=== PATIENT | male | born 1975 | race Caucasian/White ===

== ENCOUNTER 2024-01-15 08:27 | Emergency (ER) | payer BC, SELFPAY ==
[2024-01-15 08:43] VITALS: BP 158/107
--- NOTE | 2024-01-15 08:58 | ED.GENMED ---
History of Present Illness
General
Chief Complaint: Abdominal Pain
Time Seen by Provider: 01/15/24 08:58
History of Present Illness
History of Present Illness:
HPI: Patient presents with worsening right lower quadrant pain for the past week. He was seen by his cancer specialist at [facility] who referred him to PMD who referred him to ER at [facility] where he reports having a CT with oral and IV contrast that
showed 'inflammation of my intestines'. He was placed on Cipro and Flagyl. The symptoms have been worsening. They worsen with certain position changes. He called his PMD who referred him to the emergency department.
EXAM:
GENERAL: Well appearing in no distress
HEENT: Moist oral mucosa
CARDIOVASCULAR: No murmurs, normal heart rate, regular rhythm, No chest wall tenderness
PULMONARY: No respiratory distress, breath sounds are clear and equal
ABDOMEN: Soft with no peritoneal signs, very mild right lower quadrant tenderness
NEUROLOGIC: Excellent strength all extremities, no coordination deficits
PSYCHIATRIC: Appropriate mental status, normal insight and judgement
EXTREMITIES: Nontender, no edema, moves all extremities equally
SKIN: No rash, no lesions
TIME OF INITIAL ENCOUNTER: 9:06am
NUMBER AND COMPLEXITY OF PROBLEMS ADDRESSED AT THE ENCOUNTER
� Chronic conditions affecting care: HIV positive, anorectal cancer
� Acute Exacerbation and/or Progression of Chronic Illness: This is an acute problem
� Differential Diagnosis includes: Oblique muscle strain, appendicitis less likely given the timing, diverticulitis, enteritis
AMOUNT AND/OR COMPLEXITY OF DATA TO BE REVIEWED AND ANALYZED
� I performed an independent evaluation of and my interpretation is:
EKG:
CT: CT reviewed, small right renal cyst noted however no other acute abnormality
X-rays:
Laboratory Studies: CBC, chemistries, urinalysis unremarkable
Other:
� Review of other/old records: No old records available for review
� Clinical information was obtained by an independent historian: None needed
� Prescriptions/Medications Considered but not given: No clear indication for any other treatment at this time
� Further testing considered but not performed:
RISK OF COMPLICATIONS AND/OR MORBIDITY OR MORTALITY OF PATIENT MANAGEMENT
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
� Discussion with other providers:
� Escalation of care including admission/observation vs risk of discharge considered: Will repeat CT with oral and IV contrast. Toradol given for pain. Overall patient appears comfortable on reassessment at 12:[address]
imaging unremarkable. Recommend NSAIDs. Possible musculoskeletal etiologies muscle strain.
Phy Exam
Physical Exam
Physical Exam:
See HPI
Course
Orders/Labs/Results
Orders:
Orders
01/15/24 09:09
CT Abd/pel W Iv And Oral Contr Urgent
Comment:
Reason For Exam: worsening RLQ pain
0.9% Sodium Chloride 1000 ml [Nss] 1,000 ml IV BOLUS
Iohexol [Omnipaque] See Protocol PO NOW STA
Ketorolac [Toradol] 15 mg IV NOW STA
01/15/24 09:37
Complete Blood Count/With Diff Urgent
Comprehensive Metabolic Panel Urgent
Lipase Urgent
01/15/24 10:45
Urinalysis Reflex To Culture Urgent
Date Specimen was Collected: 01/15/24
Time Specimen was Collected: 10:44
Abnormal Lab Results
01/15/24
09:37
MCH 32.8 H pg
(27.0-31.0)
Abs Immat Gran (auto) 0.1 H 10^3/uL
(0-0.05)
Absolute Monos (auto) 0.7 H 10^3/uL
(0.1-0.6)
Immature Gran % 0.6 H %
(0-0.5)
01/15/24 09:37
01/15/24 09:37
Vital Signs
Initial and Last Documented VS:
Initial Vital Signs
Temp Pulse Resp BP Pulse Ox
98.1 F 94 18 158/107 97
01/15/24 08:43 01/15/24 08:43 01/15/24 08:43 01/15/24 08:43 01/15/24 08:43
Last Documented Vital Signs
Temp Pulse Resp BP Pulse Ox
97.5 F 86 15 135/81 99
01/15/24 12:59 01/15/24 12:59 01/15/24 12:59 01/15/24 12:59 01/15/24 12:59
*Critical Care Note
Total Time (30-74mins, 75-104mins- exclusive of procedures): Not Applicable
ED Attending Note
-
Portions of this chart may have been created with voice recognition software.� Occasional wrong word or��sound alike� substitutions may have occurred due to the inherent limitations of voice recognition software.
Discharge Plan
Departure
Patient Disposition: Home (Routine Discharge)
Date of Disposition: 01/15/24
Time of Disposition: 12:33
Patient with high blood pressure during this ER visit?: Yes
Discharge Problem:
Abdominal pain
Instructions: Abdominal Pain
Referrals:
Wilbert Andre MD [Family Provider] -
Stand Alone Forms: Return to Work
Activity Restrictions/Additional Instructions:
Please follow-up with your primary care doctor. I recommend 3-4 [id number] ibuprofen (Motrin) every 8 hours with food for a few days. Return here if worse. CAT scan of the abdomen pelvis did not show any acute abnormality. Blood work and
urinalysis are normal. A 4 mm right kidney cyst was noted (very small and this would not cause any symptoms).
Interventions
Interventions:
*Risk Screen - Suicide Last Done: 01/15/24 08:43
*General Assessment Last Done: 01/15/24 08:43
*Neglect/Abuse Screening Last Done: 01/15/24 08:43
ED- Fall Risk Assessment Last Done: 01/15/24 09:44
*ED COVID-19 Vaccine History Last Done: 01/15/24 08:43
*Nursing Disposition Last Done: 01/15/24 13:02
QE-[id number]-[id number] Assessment Last Done: 01/15/24 09:44
Discharge Date and Time
Discharge Date/Time: 01/15/24 13:03
Print Language: TAJIK
[2024-01-15 09:30] VITALS: BMI 24.1
[2024-01-15] MEDS: TORADOL 15 MG IV (09:37)
[2024-01-15] MEDS: OMNIPAQUE 50 ML PO (09:37)
[2024-01-15] MEDS: NSS 1000 IV (09:38)
[2024-01-15 10:00] VITALS: BP 159/91
[2024-01-15 10:12] LABS: % Basophils 0.5 % (0-2); % Eosinophils 1.1 % (0-6); % Immature Granulocytes 0.6 % (0-0.5); % Lymphocytes 25.8 % (20.5-51.1); % Monocytes 9.1 % (1.7-9.3); % Neutrophils 62.9 % (42.2-75.2); Absolute Eosinophils 0.1 10^3/uL (0-0.7); Absolute Immature Granulocytes 0.1 10^3/uL (0-0.05); Absolute Lymphocytes 2.1 10^3/uL (1.2-3.4); Absolute Monocytes 0.7 10^3/uL (0.1-0.6); Absolute Neutrophils 5.1 10^3/uL (1.4-6.5); Hematocrit 46.4 % (39.0-52.0); Hemoglobin 16.3 g/dL (13.0-18.0); Mean Corp Hgb Conc. 35.1 g/dL (33.0-37.0); Mean Corpuscular Hgb 32.8 pg (27.0-31.0); Mean Corpuscular Volume 93.4 fL (80.0-94.0); Mean Platelet Volume 9.7 fL (7.4-10.4); Nucleated Red Blood Cells % 0 % (-); Platelet Count 289 10^3/uL (130-400); Red Blood Cell Count 4.97 10^6/uL (4.70-6.10); Red Cell Dist. Width 12.9 % (11.5-14.5); White Blood Cell Count 8.2 10^3/uL (4.8-10.8)
[2024-01-15 10:30] LABS: ALT (SGPT) 19 U/L (0-50); AST (SGOT) 22 U/L (17-59); Alkaline Phosphatase 99 U/L (38-126); Blood Urea Nitrogen 12 mg/dl (9-20); Calcium 9.8 mg/dl (8.4-10.2); Carbon Dioxide 28 mmol/L (22-30); Chloride 106 mmol/L (98-107); Estimated Creatinine Clearance 88 ml/min; Glucose 88 mg/dl (70-99); Lipase 78 U/L (23-300); Potassium 4.2 mmol/L (3.5-5.1); Sodium 138 mmol/L (135-145); Total Bilirubin 0.4 mg/dl (0.2-1.3); Total Protein 6.4 g/dl (6.3-8.2); eGFR > 60.00
[2024-01-15 10:52] LABS: Urine Albumin Negative (Neg - Trace); Urine Bilirubin Negative (Negative); Urine Character Clear (Clear); Urine Color Straw; Urine Glucose Negative (Negative); Urine Ketone Negative (Negative); Urine Leukocyte Negative (Negative); Urine Nitrite Negative (Negative); Urine Occult Blood Negative (Negative); Urine Specific Gravity 1.005 (<1.030); Urine Urobilinogen Negative (Neg - 1+)
[2024-01-15 12:59] VITALS: BP 135/81
== END 2024-01-15 13:03 | disposition home or self-care (01) ==
LOC: EMR 08:27
PROVIDERS: EMERGENCY PHYSICIAN Emergency Medicine; FAMILY PHYSICIAN Internal Medicine
DX: R10.31 Right lower quadrant pain (principal); R03.0 Elevated blood-pressure reading, without diagnosis of hypertension; C21.8 Malignant neoplasm of overlapping sites of rectum, anus and anal canal; N28.1 Cyst of kidney, acquired; Z21 Asymptomatic human immunodeficiency virus [HIV] infection status; Z91.018 Allergy to other foods
CPT/HCPCS: 99285; 96361; 96374; 74177; 80053; 81003; 83690; 85025; Q9967

== ENCOUNTER 2025-04-06 14:39 | Emergency (ER) | payer BC, SELFPAY ==
[2025-04-06] VITALS (7 sets, daily range): BP systolic 120–157; BP diastolic 76–108; BMI 25.7
[2025-04-06 15:09] LABS: Hematocrit 44.1 % (39.0-52.0); Hemoglobin 15.2 g/dL (13.0-18.0); Mean Corp Hgb Conc. 34.5 g/dL (33.0-37.0); Mean Corpuscular Volume 91.5 fL (80.0-94.0); Nucleated Red Blood Cells % 0 % (-); Platelet Count 320 10^3/uL (130-400); Red Cell Dist. Width 12.8 % (11.5-14.5)
[2025-04-06 15:36] LABS: ALT (SGPT) 22 U/L (0-50); AST (SGOT) 28 U/L (17-59); Albumin 4.3 g/dl (3.5-5.0); Alkaline Phosphatase 98 U/L (38-126); Blood Urea Nitrogen 9 mg/dl (9-20); Calcium 9.7 mg/dl (8.4-10.2); Carbon Dioxide 26 mmol/L (22-30); Chloride 106 mmol/L (98-107); Glucose 83 mg/dl (70-99); Potassium 4.0 mmol/L (3.5-5.1); Sodium 137 mmol/L (135-145); Total Protein 7.0 g/dl (6.3-8.2); eGFR > 60.00
[2025-04-06 15:40] LABS: Troponin I < 0.012 ng/ml
--- NOTE | 2025-04-06 17:12 | ED.GENMED ---
History of Present Illness
General
Chief Complaint: Chest Pain
Source: patient
Exam Limitations: none
Time Seen by Provider: 04/06/25 16:35
Nursing documentation reviewed up to this point in time: agreed with
History of Present Illness
History of Present Illness:
Patient to the emergency department with sudden onset of left-sided chest pain. Described pain as sharp radiating to left shoulder and down left arm. States his left arm felt weak. The arm symptoms improved when he bent the elbow to 90 degrees.
States pain was worse with deep breathing. No associated nausea or diaphoresis. No prior history of same. Brought to the emergency department by for evaluation. He reports he can still feel some discomfort with deep breathing otherwise most
of his pain is resolved.
Past History
Past History
ED Past Medical History: Cancer (rectal), HTN, Hypercholesterolemia and Other (HIV)
Social History
Tobacco: Smoker (1ppd)
Review of Systems
Review of Systems
Allergies reviewed?: Yes
All Other Systems: ROS reviewed and negative except as documented in HPI and ROS
Constitutional: Reports no symptoms
EENT: Reports no symptoms
Respiratory: Reports other (Pain with deep breathing)
Cardiac: Reports chest pain (Left-sided chest pain with radiation to left arm.)
ABD/GI: Reports no symptoms
: Reports no symptoms
Musculoskeletal: Reports no symptoms
Skin: Reports no symptoms
Neurological: Reports no symptoms
Psychiatric: Reports no symptoms
Phy Exam
General Physical Exam
General Presentation: mild distress
General age: appears stated age
General Skin: warm and dry
General Habitus: normal
General Mental: alert
Cardiovascular Exam
Cardiovascular Exam: regular rate/rhythm and no edema
Pulmonary Exam
Pulmonary Exam: lungs clear, no respiratory distress and chest non tender
Musculoskeletal Exam
Musculoskeletal Exam: full ROM and neuro vasc intact
Skin Exam
Skin Exam: normal color, warm/dry and no rash
Psychiatric Exam
Psychiatric Exam: normal mood/affect
Scores
Heart Score for Chest Pain Patients
STEMI patient?: No
History: Slightly or Non-Suspicious
ECG: Normal
Age: >45 - <65 years
Risk Factors: 1 or 2 Risk Factors
Troponin: </= Normal Limit
Heart Score for Chest Pain Patients: 2
Heart Score Risk: 2.5% MACE over next 6 weeks
Course
Orders/Labs/Results
Orders:
Orders
04/06/25 14:40
Electrocardiogram (*1) Urgent
Reason for Study: Chest Pain
EKG- Treatment ONCE
04/06/25 14:55
Complete Blood Count/With Diff Urgent
Comprehensive Metabolic Panel Urgent
Troponin I Urgent
04/06/25 16:46
CR Chest - 2 Views Urgent
Comment:
Reason For Exam: left chest pain
04/06/25 18:28
D-Dimer Urgent
Troponin I Urgent
Abnormal Lab Results
04/06/25
14:55
MCH 31.5 H pg
(27.0-31.0)
Absolute Neuts (auto) 7.4 H 10^3/uL
(1.4-6.5)
Absolute Monos (auto) 0.8 H 10^3/uL
(0.1-0.6)
04/06/25 14:55
04/06/25 14:55
Vital Signs
Initial and Last Documented VS:
Initial Vital Signs
Temp Pulse Resp BP Pulse Ox
98.5 F 83 16 157/108 98
04/06/25 14:47 04/06/25 14:47 04/06/25 14:47 04/06/25 14:47 04/06/25 14:47
Last Documented Vital Signs
Temp Pulse Resp BP Pulse Ox
98.5 F 52 12 126/76 96
04/06/25 14:47 04/06/25 19:00 04/06/25 19:00 04/06/25 19:00 04/06/25 19:00
*Radiology
Radiology exam reviewed: radiology read reviewed
*Pulse Oximetry
SaO2: 98
Oxygen Mode of Delivery: Room air
Patient hypoxic: no
*EKG
Interpretation: normal
Rate: normal
Rhythm: sinus
*Critical Care Note
Total Time (30-74mins, 75-104mins- exclusive of procedures): Not Applicable
Update Note
Update Note:
Patient to the emergency department for evaluation of the sudden onset of left-sided chest pain radiating to his left arm. He states if he bends his left arm to 90 degrees the pain in his arm dissipates. No associated associated nausea vomiting
diaphoresis. Pain resolved on arrival to the emergency department. Vital signs are stable he remains afebrile. Labs reviewed no concerning findings. Troponin negative x 2 D-dimer negative. EKG shows normal sinus rhythm. Patient remains awake
and alert in no distress. Doubtful for ACS. Will discharge home. Close follow-up with PCP. He was instructed to call his family doctor in the morning to schedule a follow-up appointment for this week. He was given instructions on signs and
symptoms to return to the emergency department and he is agreeable to plan.
ED Attending Note
-
Portions of this chart may have been created with voice recognition software.� Occasional wrong word or��sound alike� substitutions may have occurred due to the inherent limitations of voice recognition software.
Discharge Plan
Departure
Patient Disposition: Home (Routine Discharge)
Date of Disposition: 04/06/25
Time of Disposition: 19:22
Patient with high blood pressure during this ER visit?: No
Condition: Good
Covid-19: Not Applicable
Discharge Problem:
Chest pain
Instructions: Chest Pain PCP Follow Up
Referrals:
Derusso,Wilbert, MD [Family Provider] - Keep scheduled appt
Stand Alone Forms: Return to Work
Activity Restrictions/Additional Instructions:
Follow-up with your Workmen's Comp. provider in the morning as scheduled. Return to the emergency department immediately for any changes in or worsening of your symptoms.
Interventions
Interventions:
*Risk Screen - Suicide Last Done: 04/06/25 14:47
*General Assessment Last Done: 04/06/25 14:47
*Neglect/Abuse Screening Last Done: 04/06/25 14:47
*ED- Fall Risk Assessment Last Done: 04/06/25 14:47
*ED COVID-19 Vaccine History Last Done: 04/06/25 14:47
*ED Influenza Vaccine History Last Done: 04/06/25 14:47
*Nursing Disposition Last Done: 04/06/25 19:52
ED- Cardiac Assessment Last Done: 04/06/25 17:30
Discharge Date and Time
Discharge Date/Time: 04/06/25 19:53
Print Language: GREEK
[2025-04-06 18:49] LABS: D-Dimer 0.34 ug/mlFEU (0.00-0.50)
[2025-04-06 19:02] LABS: Troponin I < 0.012 ng/ml
== END 2025-04-06 19:53 | disposition home or self-care (01) ==
LOC: EMR 14:39
PROVIDERS: EMERGENCY PHYSICIAN Student in an Organized Health Care Education/Training Program; FAMILY PHYSICIAN Internal Medicine
DX: R07.89 Other chest pain (principal); E78.00 Pure hypercholesterolemia, unspecified; I10 Essential (primary) hypertension; F17.200 Nicotine dependence, unspecified, uncomplicated; Z85.048 Personal history of other malignant neoplasm of rectum, rectosigmoid junction, and anus
CPT/HCPCS: 99285; 71046; 80053; 84484; 85025; 85379; 93005